=== PATIENT | female | born 1995 | race Caucasian/White ===

== ENCOUNTER 2017-01-10 21:09 | Emergency (ER) | payer MEDICAID, OTHER ==
--- NOTE | 2017-01-10 22:02 | ED Physician Documentation ---
History of Present Illness - Stated complaint Stated Complaint: LIGHTHEADED/NAUSEA - Chief complaint Chief Complaint: General - History obtained from History obtained from: Patient - History of Present Illness Timing: How many days ago (4) Pain level max: 0 Pain level now: 0 Improved by: rest Worsened by: intermittently worsened when sitting or standing from lying down position - Additonal information Additional information: c/o 4 days of lightheadedness, mild nausea without vomiting, and mild dyspnea Review of Systems Constitutional: denies: Fever, Chills, Fatigue, Sweats Cardiac: reports: Palpitations. denies: Chest pain / pressure Respiratory: reports: Dyspnea GI: reports: Nausea. denies: Abdominal Pain, Vomiting : denies: Dysuria, Frequency, Now EGA Neurologic: denies: Generalized weakness, Focal weakness, Numbness, Headache PD PAST MEDICAL HISTORY - Past Medical History Past Medical History: No - Past Surgical History Past Surgical History: No - Present Medications Home Medications: Ambulatory Orders Medication Instructions Recorded Confirmed LORazepam [Ativan] 0.5 mg PO Q6H PRN #14 tablet 01/10/17 - Allergies Allergies/Adverse Reactions: Allergies Allergy/AdvReac Type Severity Reaction Status Date / Time No Known Drug Allergies Allergy Verified 01/10/17 21:20 - Living Situation Living Arrangement: reports: At home - Social History Does the pt smoke?: No PD ED PE NORMAL - Vitals Vital signs reviewed: Yes - General General: Alert and oriented X 3, Well developed/nourished, Other (appears to be mildly anxious) - HEENT HEENT: PERRL, EOMI, Moist mucous membranes - Neck Neck: Supple, no meningeal sign - Cardiac Cardiac: No murmur - Respiratory Respiratory: No respiratory distress, Clear bilaterally - Abdomen Abdomen: Soft, Non tender - Neuro Neuro: Alert and oriented X 3, 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, No motor deficit, No sensory deficit PD ED PE EXPANDED - Cardiac Cardiac: Tachy, Regular Rhythm Results - Vitals Vitals: Vital Signs - 24 hr 01/10/17 01/10/17 21:17 23:00 Temperature 36.7 C 36.6 C Heart Rate 120 H 91 Respiratory 16 16 Rate Blood Pressure 141/92 H 136/99 H O2 Saturation 100 100 Oxygen O2 Source Room air - Labs Labs: Laboratory Tests 01/10/17 01/10/17 22:30 22:30 WBC 13.2 H RBC 6.35 H Hgb 12.5 Hct 40.4 MCV 63.6 L MCH 19.6 L MCHC 30.9 L RDW 16.0 H Plt Count 254 MPV 8.8 Neut # 9.3 H Lymph # 3.0 [place] # 0.8 Eos # 0.1 Baso # 0.1 Absolute Nucleated RBC 0.01 Nucleated RBCs 0.1 Manual Slide Review Indicated Platelet Estimate NORMAL (130-450,000) Platelet Morphology NORMAL APPEARANCE RBC Morph Micro Appear 1+ OVALOCYTES Sodium 137 Potassium 3.5 Chloride 101 Carbon Dioxide 25 Anion Gap 11.0 BUN 8 Creatinine 0.6 Estimated GFR (MDRD) 129 Glucose 106 H Calcium 9.7 PD MEDICAL DECISION MAKING - ED course Complexity details: reviewed results (Patient reported significant improvement on reevaluation prior to d/c), re-evaluated patient, considered differential, d/ w patient Departure - Departure Disposition: 01 Home, Self Care Clinical Impression: Lightheaded Condition: Good Instructions: ED Dizziness UKO, ED Hypertension Poss, ED Near Syncope Unkn Follow-Up: [facility] [Provider Group] [facility] [Provider Group] Prescriptions: LORazepam [Ativan] 0.5 mg PO Q6H PRN #14 tablet PRN Reason: Anxiety Discharge Date/Time: 01/10/17 23:57
[2017-01-10] MEDS ORDERED: LORazepam 0.5 MG TABLET PO STA (22:30)
[2017-01-10] MEDS ORDERED: LORazepam 0.5 MG TABLET ONE (22:36)
[2017-01-10 22:41] LABS: BASOPHILS # (AUTO) 0.1 10^3/uL (0.0-0.1); BASOPHILS % (AUTO) 0.4 %; EOSINOPHILS # (AUTO) 0.1 10^3/uL (0.0-0.7); EOSINOPHILS % (AUTO) 0.6 %; HCT - HEMATOCRIT 40.4 % (37.0-47.0); HGB - HEMOGLOBIN 12.5 g/dL (12.0-16.0); LYMPHOCYTES % (AUTO) 22.7 %; MEAN CORPUSCULAR HEMOGLOBIN 19.6 pg (27.0-31.0); MEAN CORPUSCULAR HGB CONC 30.9 g/dL (32.0-36.0); MEAN CORPUSCULAR VOLUME 63.6 fL (81.0-99.0); MEAN PLATELET VOLUME 8.8 fL (7.9-10.8); MONOCYTES # (AUTO) 0.8 10^3/uL (0.0-1.0); MONOCYTES % (AUTO) 5.9 %; NEUTROPHILS # (AUTO) 9.3 10^3/uL (1.5-6.6); NEUTROPHILS % (AUTO) 70.4 %; NUCLEATED RED BLOOD CELLS AUTO 0.1 /100WBC; RED BLOOD COUNT 6.35 10^6/uL (4.20-5.40); UNCORRECTED WHITE BLOOD COUNT 13.2 x10^3/uL; WHITE BLOOD COUNT 13.2 x10^3/uL (4.8-10.8)
[2017-01-10 22:46] LABS: CALCIUM 9.7 mg/dL (8.5-10.3); CREATININE 0.6 mg/dL (0.4-1.0); POTASSIUM 3.5 mmol/L (3.5-5.0)
[2017-01-10 23:01] VITALS: BP 136/99
[2017-01-10 23:18] LABS: PLATELET ESTIMATE, MANUAL NORMAL (130-450,000) (NORMAL); PLATELET MORPHOLOGY NORMAL APPEARANCE (NORMAL)
== END 2017-01-10 23:57 | disposition home or self-care (01) ==
LOC: ED 21:09
DX: R42 Dizziness and giddiness (principal); F41.9 Anxiety disorder, unspecified
CPT/HCPCS: 36415; 80048; 85025; 99283; A9270

== ENCOUNTER 2017-02-15 01:10 | Emergency (ER) | payer OTHER ==
--- NOTE | 2017-02-15 02:16 | ED Physician Documentation ---
History of Present Illness - Stated complaint Stated Complaint: BODY ACHES - Chief complaint Chief Complaint: General - History obtained from History obtained from: Patient - History of Present Illness Timing: How many days ago (2) Pain level now: 3 Radiates to: right shoulder and right upper back Improved by: rest Worsened by: movement, palpation - Additonal information Additional information: c/o atraumatic right-sided neck pain x 2 days. She had a massage yesterday, but the pain subsequently worsened and now radiates to right shoulder and right upper back. 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 PD PAST MEDICAL HISTORY - Past Medical History Past Medical History: No - Past Surgical History Past Surgical History: No - Present Medications Home Medications: Ambulatory Orders Medication Instructions Recorded Confirmed traMADol [Ultram] 50 - 100 mg PO Q6H PRN #20 tablet 02/15/17 - Allergies Allergies/Adverse Reactions: Allergies Allergy/AdvReac Type Severity Reaction Status Date / Time No Known Drug Allergies Allergy Verified 02/15/17 01:18 - Social History Does the pt smoke?: No Smoking Status: Never smoker Does the pt drink ETOH?: No Does the pt have substance abuse?: No - Immunizations Immunizations are current?: Yes - POLST Patient has POLST: No PD ED PE NORMAL - Vitals Vital signs reviewed: Yes - General General: Alert and oriented X 3, No acute distress, Well developed/nourished - HEENT HEENT: Moist mucous membranes, Pharynx benign - Neck Neck: Supple, no meningeal sign, No bony TTP - Respiratory Respiratory: No respiratory distress, Clear bilaterally - Back Back: No spinal TTP - Derm Derm: No rash - Free text exam Free text exam: mild tenderness to palpation along right trapezial ridge Results - Vitals Vitals: Vital Signs - 24 hr 02/15/17 02/15/17 01:15 02:35 Temperature 36.7 C 36.8 C Heart Rate 89 86 Respiratory 18 16 Rate Blood Pressure 128/85 H 113/79 O2 Saturation 99 96 Oxygen O2 Source Room air PD MEDICAL DECISION MAKING - ED course Complexity details: considered differential, d/w patient, d/w family ED course: unremarkable exam although tenderness along right trapezius muscle. Emergent testing not indicated at this time. I offered pain medication, discussed options (tylenol, ultram, vicodin. I recommended ultram, as vicodin would probably be unnecessarily strong at this time, and tylenol unlikely to control the pain if ibuprofen was inadequate). She declined pain meds in ED but agreeable to take rx to take if pain worsens. Departure - Departure Disposition: 01 Home, Self Care Clinical Impression: Neck pain Condition: Good Instructions: ED Neck Pain No Trauma Prescriptions: traMADol [Ultram] 50 - 100 mg PO Q6H PRN #20 tablet PRN Reason: Pain Discharge Date/Time: 02/15/17 02:37
[2017-02-15 02:36] VITALS: BP 113/79
== END 2017-02-15 02:37 | disposition home or self-care (01) ==
LOC: ED 01:10
DX: M54.2 Cervicalgia (principal); M54.6 Pain in thoracic spine
CPT/HCPCS: 99283

== ENCOUNTER 2017-08-16 00:16 | Emergency (ER) | payer SELFPAY ==
--- NOTE | 2017-08-16 02:09 | ED Physician Documentation ---
History of Present Illness - Stated complaint Stated Complaint: SHORTNESS OF BREATH - Chief complaint Chief Complaint: General - History obtained from History obtained from: Patient - History of Present Illness Improved by: no ameliorating factors Worsened by: neck pain is worse with palpation - Additonal information Additional information: c/o tenderness midline anterior neck (she points to the thyroid cartilage) x months (I had evaluated patient in this ED previously for similar c/o), presents tonight due to dyspnea without apparent inciting factor(s) and which spontaneously resolved BUSINESS ASSISTANT. Review of Systems Constitutional: denies: Fever, Chills, Sweats Throat: denies: Sore throat Cardiac: reports: Reviewed and negative Respiratory: reports: Dyspnea (resolved). denies: Cough, Wheezing GI: reports: Reviewed and negative Musculoskeletal: reports: Neck pain (anterior midline) PD PAST MEDICAL HISTORY - Past Medical History Past Medical History: No - Past Surgical History Past Surgical History: No - Present Medications Home Medications: Ambulatory Orders Medication Instructions Recorded Confirmed LORazepam [Ativan] 0.5 mg PO Q6H PRN #14 tablet 08/16/17 - Allergies Allergies/Adverse Reactions: Allergies Allergy/AdvReac Type Severity Reaction Status Date / Time No Known Drug Allergies Allergy Verified 08/16/17 00:22 - Social History Does the pt smoke?: No Smoking Status: Never smoker Does the pt drink ETOH?: No Does the pt have substance abuse?: No - Immunizations Immunizations are current?: Yes - POLST Patient has POLST: No PD ED PE NORMAL - Vitals Vital signs reviewed: Yes - General General: Alert and oriented X 3, No acute distress, Well developed/nourished - HEENT HEENT: Moist mucous membranes, Pharynx benign - Cardiac Cardiac: RRR, No murmur - Respiratory Respiratory: No respiratory distress, Clear bilaterally - Derm Derm: Normal color, Warm and dry, No rash PD ED PE EXPANDED - Neck Neck: Supple w/out meningeal sx. No: Thyroid enlarged / mass, No tenderness, Soft tissue TTP, Bony TTP, Limited ROM Results - Vitals Vitals: Vital Signs - 24 hr 08/16/17 08/16/17 00:18 02:27 Temperature 36.7 C 36.4 C L Heart Rate 86 75 Respiratory 18 18 Rate Blood Pressure 136/92 H 120/77 O2 Saturation 100 97 Oxygen O2 Source Room air PD MEDICAL DECISION MAKING - ED course Complexity details: considered differential, d/w patient ED course: NAD, lungs CTA bilaterally, VSS, and unremarkable exam of neck. Emergent testing not indicated at this time; encouraged to seek follow-up in outpatient setting. She requests rx for the anxiety medication that was given to her on a previous visit (lorazepam, was given dose in ED on previous visit and she says this had helped her symptoms at that time. She is driving tonight and thus will be given rx but none in ED. She says she never filled the rx last time). Departure - Departure Disposition: 01 Home, Self Care Clinical Impression: Neck pain Dyspnea Qualifiers: Dyspnea type: shortness of breath Qualified Code(s): R06.02 - Shortness of breath Condition: Good Instructions: ED Dyspnea Shortness of Breath Follow-Up: [facility] [Provider Group] [facility] [Provider Group] Prescriptions: LORazepam [Ativan] 0.5 mg PO Q6H PRN #14 tablet PRN Reason: Anxiety Discharge Date/Time: 08/16/17 02:28
[2017-08-16 02:28] VITALS: BP 120/77
== END 2017-08-16 02:28 | disposition home or self-care (01) ==
LOC: ED 00:16
DX: R06.02 Shortness of breath (principal); M54.2 Cervicalgia
CPT/HCPCS: 99283

== ENCOUNTER 2017-10-15 11:48 | Emergency (ER) | payer SELFPAY ==
[2017-10-15 11:55] VITALS: BP 118/73
--- NOTE | 2017-10-15 12:34 | ED Physician Documentation ---
PD HPI BACK INJURY - Stated complaint Stated Complaint: LOWER BACK/HIP PX - History obtained from History obtained from: Patient - History of Present Illness Location: Right, Lower Type of injury: Other (She felt a pull in her back yesterday, she works at a [employer] and she was lifting a patient at the time. Did not hurt that much until she got up this morning and has focal burning right lower back pain that does not radiate into the leg or groin. It is not associated with weakness, numbness, or tingling of the legs or saddle area and there is no incontinence. No urinary complaints. No fever.) Review of Systems Constitutional: reports: Reviewed and negative Throat: reports: Reviewed and negative Cardiac: reports: Reviewed and negative Respiratory: reports: Dyspnea PD PAST MEDICAL HISTORY - Past Medical History Past Medical History: No - Past Surgical History Past Surgical History: No - Present Medications Home Medications: Ambulatory Orders Medication Instructions Recorded Confirmed Cyclobenzaprine [Flexeril] 10 mg PO TID PRN #20 tablet 10/15/17 Ibuprofen [Motrin] 800 mg PO Q8H PRN #30 tablet 10/15/17 - Allergies Allergies/Adverse Reactions: Allergies Allergy/AdvReac Type Severity Reaction Status Date / Time No Known Drug Allergies Allergy Verified 10/15/17 12:21 - Social History Does the pt smoke?: No Smoking Status: Never smoker Does the pt drink ETOH?: No Does the pt have substance abuse?: No - Immunizations Immunizations are current?: Yes - POLST Patient has POLST: No PD ED PE NORMAL - Vitals Vital signs reviewed: Yes - General General: Alert and oriented X 3, No acute distress - Back Back: Other (Muscular tenderness of the right lower lumbar area) - Extremities Extremities: Other (The patient has equal and normal Achilles and patellar reflexes bilaterally. Normal sensation in all areas of the legs. Patient denies saddle anesthesia. Normal strength in flexion-extension at the ankles, knees, and flexion of the hips.) - Neuro Neuro: Alert and oriented X 3, Normal speech Results - Vitals Vitals: Vital Signs - 24 hr 10/15/17 11:51 Temperature 36.4 C L Heart Rate 82 Respiratory 18 Rate Blood Pressure 118/73 O2 Saturation 97 Oxygen O2 Source Room air PD MEDICAL DECISION MAKING - Sepsis Event Vital Signs: Vital Signs - 24 hr 10/15/17 11:51 Temperature 36.4 C L Heart Rate 82 Respiratory 18 Rate Blood Pressure 118/73 O2 Saturation 97 Oxygen O2 Source Room air Departure - Departure Disposition: 01 Home, Self Care Clinical Impression: Back pain Qualifiers: Back pain location: low back pain Chronicity: acute Back pain laterality: right Sciatica presence: without sciatica Qualified Code(s): M54.5 - Low back pain Condition: Good Record reviewed to determine appropriate education?: Yes Instructions: ED Low Back Pain Injury Prescriptions: Cyclobenzaprine [Flexeril] 10 mg PO TID PRN #20 tablet PRN Reason: Pain Ibuprofen [Motrin] 800 mg PO Q8H PRN #30 tablet PRN Reason: PAIN &/OR FEVER Comments: Call your doctor to arrange a follow-up appointment, make the next available appointment. In the interim, return anytime if worse or if new symptoms develop. Forms: Activity restrictions
== END 2017-10-15 12:41 | disposition home or self-care (01) ==
LOC: ED 11:48
DX: M54.5 Low back pain (principal); X50.9XXA Other and unspecified overexertion or strenuous movements or postures, initial encounter; Y93.F2 Activity, caregiving, lifting; Y92.129 Unspecified place in nursing home as the place of occurrence of the external cause; Y99.0 Civilian activity done for income or pay
CPT/HCPCS: 99283

== ENCOUNTER 2017-12-19 09:52 | Emergency (ER) | payer MEDICAID ==
[2017-12-19] MEDS ORDERED: ONDANSETRON ODT 4 MG TABLET TL STA (12:12)
--- NOTE | 2017-12-19 12:13 | ED Physician Documentation ---
PD HPI PED ILLNESS - Stated complaint Stated Complaint: NAUSEA,DIARRHEA,CHILLS,HEADACHE - Chief complaint Chief Complaint: General - History obtained from History obtained from: Patient - History of Present Illness Timing - onset: Other (She is been ill for a little under a week with nausea but no vomiting and diarrhea about twice a day, not mucousy or bloody junk, just watery. She also has stomach cramps and decreased appetite but is eating and drinking. She has had chills but no measured fevers. Her sister and her niece have had similar issues. No recent camping or antibiotic use.) Review of Systems Constitutional: reports: Chills, Fatigue. denies: Fever Cardiac: denies: Chest pain / pressure, Palpitations Respiratory: denies: Dyspnea, Cough GI: reports: Abdominal Pain, Nausea, Diarrhea. denies: Vomiting, Bloody / black stool PD PAST MEDICAL HISTORY - Past Medical History Past Medical History: No - Past Surgical History Past Surgical History: No - Present Medications Home Medications: Ambulatory Orders Medication Instructions Recorded Confirmed Loperamide [Imodium] 2 mg PO QID PRN #10 capsule 12/19/17 Ondansetron Odt [Zofran] 4 mg TL Q6H PRN #10 tablet 12/19/17 Stool 1 unit TD ONCE #1 12/19/17 - Allergies Allergies/Adverse Reactions: Allergies Allergy/AdvReac Type Severity Reaction Status Date / Time No Known Drug Allergies Allergy Verified 12/19/17 10:07 - Social History Does the pt smoke?: No Smoking Status: Never smoker Does the pt drink ETOH?: No Does the pt have substance abuse?: No - Immunizations Immunizations are current?: Yes - POLST Patient has POLST: No PD ED PE NORMAL - Vitals Vital signs reviewed: Yes - General General: Alert and oriented X 3, No acute distress - HEENT HEENT: Moist mucous membranes, Pharynx benign - Cardiac Cardiac: RRR, No murmur - Respiratory Respiratory: No respiratory distress, Clear bilaterally - Abdomen Abdomen: Normal bowel sounds, Soft, Non tender - Derm Derm: No rash - Neuro Neuro: Alert and oriented X 3, Normal speech Results - Vitals Vitals: Vital Signs - 24 hr 12/19/17 10:03 Temperature 36.4 C L Heart Rate 75 Respiratory 16 Rate Blood Pressure 126/108 H O2 Saturation 98 Oxygen O2 Source Room air - Labs Labs: Laboratory Tests 12/19/17 12/19/17 12/19/17 12:12 12:35 12:35 WBC 9.8 RBC 6.11 H Hgb 12.7 Hct 39.4 MCV 64.4 L MCH 20.8 L MCHC 32.2 RDW 15.6 H Plt Count 207 MPV 8.4 Neut # (Auto) 5.7 Lymph # (Auto) 3.1 [place] # (Auto) 0.7 Eos # (Auto) 0.2 Baso # (Auto) 0.1 Absolute Nucleated RBC 0.01 Nucleated RBC % 0.1 Sodium 136 Potassium 3.8 Chloride 103 Carbon Dioxide 27 Anion Gap 6.0 BUN 15 Creatinine 0.6 Estimated GFR (MDRD) 127 Glucose 98 Calcium 9.2 Total Bilirubin 0.9 AST 15 ALT 17 Alkaline Phosphatase 75 Total Protein 7.7 Albumin 4.4 Globulin 3.3 Albumin/Globulin Ratio 1.3 Lipase 37 Urine Color YELLOW Urine Clarity HAZY Urine pH 6.0 Ur Specific [place] >=1.030 H Urine Protein NEGATIVE Urine Glucose (UA) NEGATIVE Urine Ketones NEGATIVE Urine Occult Blood NEGATIVE Urine Nitrite NEGATIVE Urine Bilirubin NEGATIVE Urine Urobilinogen 0.2 (NORMAL) Ur Leukocyte Esterase NEGATIVE Urine RBC None Seen Urine WBC 0-3 Ur Squamous Epith Cells RARE Squamous Urine Bacteria Rare Urine Mucus Marked Strands Ur Microscopic Review INDICATED Urine Culture Comments NOT INDICATED Urine HCG, Qual NEGATIVE PD MEDICAL DECISION MAKING - ED course ED course: 22-year-old presents with almost week's worth of diarrhea, nausea and cramping. Chills but no fevers. Examination is benign as is her blood work. She was unable to produce a stool sample here and given outpatient lab requisition. - Sepsis Event Vital Signs: Vital Signs - 24 hr 12/19/17 10:03 Temperature 36.4 C L Heart Rate 75 Respiratory 16 Rate Blood Pressure 126/108 H O2 Saturation 98 Oxygen O2 Source Room air Departure - Departure Disposition: 01 Home, Self Care Clinical Impression: Diarrhea Qualifiers: Diarrhea type: presumed infectious Qualified Code(s): R19.7 - Diarrhea, unspecified Condition: Good Record reviewed to determine appropriate education?: Yes Instructions: ED Gastroenteritis Report Pend Prescriptions: Loperamide [Imodium] 2 mg PO QID PRN #10 capsule PRN Reason: Diarrhea Ondansetron Odt [Zofran] 4 mg TL Q6H PRN #10 tablet PRN Reason: Nausea / Vomiting Stool 1 unit TD ONCE #1 Comments: Return a stool sample to lab when you are able. Return if worsening. Follow- up with your doctor in 2-3 days if not better. Your blood pressure was elevated today on check into the emergency department. This does not mean that you have hypertension, it is a common phenomenon to come to the emergency department and have elevated blood pressure. I recommend that you see your primary care physician within the week to have it rechecked when you are feeling better.
[2017-12-19 12:46] LABS: BILIRUBIN,URINE NEGATIVE (NEGATIVE); GLUCOSE, URINE (UA) NEGATIVE (NEGATIVE); KETONES,URINE (UA) NEGATIVE (NEGATIVE); LEUKOCYTE ESTERASE, URINE NEGATIVE (NEGATIVE); NITRITE,URINE NEGATIVE (NEGATIVE); OCCULT BLOOD,URINE NEGATIVE (NEGATIVE); PROTEIN,URINE NEGATIVE (NEGATIVE); UROBILINOGEN,URINE 0.2 (NORMAL) E.U./dL (NORMAL)
[2017-12-19 12:51] LABS: CLARITY,URINE HAZY (CLEAR); HCG UR QUAL NEGATIVE
[2017-12-19 12:52] LABS: BACTERIA,URINE Rare /HPF (None Seen); MUCUS,URINE Marked Strands; RBC,URINE None Seen /HPF (0-5); SQUAMOUS EPITHELIAL CELL,UR RARE Squamous (<= Few)
[2017-12-19 12:57] LABS: BASOPHILS # (AUTO) 0.1 10^3/uL (0.0-0.1); BASOPHILS % (AUTO) 0.6 %; EOSINOPHILS # (AUTO) 0.2 10^3/uL (0.0-0.7); EOSINOPHILS % (AUTO) 2.2 %; HGB - HEMOGLOBIN 12.7 g/dL (12.0-16.0); LYMPHOCYTES # (AUTO) 3.1 10^3/uL (1.5-3.5); LYMPHOCYTES % (AUTO) 32.1 %; MEAN CORPUSCULAR HEMOGLOBIN 20.8 pg (27.0-31.0); MEAN CORPUSCULAR HGB CONC 32.2 g/dL (32.0-36.0); MEAN CORPUSCULAR VOLUME 64.4 fL (81.0-99.0); MEAN PLATELET VOLUME 8.4 fL (7.9-10.8); MONOCYTES # (AUTO) 0.7 10^3/uL (0.0-1.0); MONOCYTES % (AUTO) 6.7 %; NEUTROPHILS # (AUTO) 5.7 10^3/uL (1.5-6.6); NEUTROPHILS % (AUTO) 58.4 %; PLT - PLATELET COUNT 207 10^3/uL (130-450); RED BLOOD COUNT 6.11 10^6/uL (4.20-5.40); RED CELL DISTRIBUTION WIDTH 15.6 % (12.0-15.0); WHITE BLOOD COUNT 9.8 x10^3/uL (4.8-10.8)
[2017-12-19 13:01] LABS: ALBUMIN 4.4 g/dL (3.2-5.5); ALBUMIN/GLOBULIN RATIO 1.3 (1.0-2.2); BILIRUBIN,TOTAL 0.9 mg/dL (0.2-1.0); CALCIUM 9.2 mg/dL (8.5-10.3); CREATININE 0.6 mg/dL (0.4-1.0); TOTAL PROTEIN 7.7 g/dL (6.7-8.2)
[2017-12-19 13:44] VITALS: BP 124/85
== END 2017-12-19 13:36 | disposition home or self-care (01) ==
LOC: ED 09:52
DX: R19.7 Diarrhea, unspecified (principal); R03.0 Elevated blood-pressure reading, without diagnosis of hypertension
CPT/HCPCS: 36415; 80053; 81001; 81025; 83690; 85025; 99283; Q0162; 81003; 87086

== ENCOUNTER 2018-06-28 23:04 | Emergency (ER) | payer MEDICAID ==
[2018-06-28 23:43] LABS: BILIRUBIN,URINE NEGATIVE (NEGATIVE); GLUCOSE, URINE (UA) NEGATIVE (NEGATIVE); KETONES,URINE (UA) NEGATIVE (NEGATIVE); LEUKOCYTE ESTERASE, URINE TRACE (NEGATIVE); NITRITE,URINE NEGATIVE (NEGATIVE); OCCULT BLOOD,URINE NEGATIVE (NEGATIVE); PH,URINE 6.5 PH (5.0-7.5); PROTEIN,URINE NEGATIVE (NEGATIVE); UROBILINOGEN,URINE 1 (NORMAL) E.U./dL (NORMAL)
[2018-06-28 23:46] LABS: CLARITY,URINE CLEAR (CLEAR); HCG UR QUAL NEGATIVE
[2018-06-28 23:51] LABS: BACTERIA,URINE Rare /HPF (None Seen); MUCUS,URINE Few Strands; RBC,URINE 0-5 /HPF (0-5); SQUAMOUS EPITHELIAL CELL,UR MOD Squamous (<= Few)
[2018-06-29 00:57] VITALS: BP 134/93
--- NOTE | 2018-06-29 06:07 | ED Physician Documentation ---
PD HPI BACK PAIN - Stated complaint Stated Complaint: LWR L BACK PAIN - Chief complaint Chief Complaint: Back Pain - History obtained from History obtained from: Patient - History of Present Illness Timing - onset: How many days ago (2) Timing - details: Abrupt onset, Now resolved, Intermittant Pain level max: 5 Pain level now: 0 Location: Lower, Left Quality: Pain Improves with: Rest Worsened by: Movement Similar symptoms before: Has not had sx before Recently seen: Not recently seen - Additional information Additional information: c/o episodic left low back pain x 2 days. denies injury, denies h/o similar symptoms. When the pain is present, it is exacerbated with movement. However, she has no pain between episodes, and movement has no inciting quality to the episodes. She also says she is "five days late" with her menses Review of Systems Constitutional: denies: Fever, Chills, Sweats GI: denies: Abdominal Pain, Nausea, Vomiting : reports: Missed period ("five days late", per patient). denies: Dysuria, Frequency, Hematuria Musculoskeletal: reports: Back pain Neurologic: denies: Focal weakness, Numbness PD PAST MEDICAL HISTORY - Past Medical History Past Medical History: No - Past Surgical History Past Surgical History: No - Present Medications Home Medications: Ambulatory Orders Medication Instructions Recorded Confirmed Loperamide [Imodium] 2 mg PO QID PRN #10 capsule 12/19/17 Ondansetron Odt [Zofran] 4 mg TL Q6H PRN #10 tablet 12/19/17 Stool 1 unit TD ONCE #1 12/19/17 - Allergies Allergies/Adverse Reactions: Allergies Allergy/AdvReac Type Severity Reaction Status Date / Time No Known Drug Allergies Allergy Verified 06/28/18 23:09 - Social History Does the pt smoke?: No Smoking Status: Never smoker Does the pt drink ETOH?: No Does the pt have substance abuse?: No - Immunizations Immunizations are current?: Yes - POLST Patient has POLST: No PD ED PE NORMAL - Vitals Vital signs reviewed: Yes - General General: Alert and oriented X 3, No acute distress, Well developed/nourished - Abdomen Abdomen: Soft, Non tender - Back Back: No CVA TTP, No spinal TTP Results - Vitals Vitals: Vital Signs - 24 hr 06/28/18 06/29/18 06/29/18 23:07 00:54 00:57 Temperature 36.7 C 36.7 C Heart Rate 124 H 119 H Respiratory 18 20 Rate Blood Pressure 106/87 H 162/115 H 134/93 H O2 Saturation 100 98 Oxygen O2 Source Room air - Labs Labs: Laboratory Tests 06/28/18 23:15 Urine Color YELLOW Urine Clarity CLEAR Urine pH 6.5 Ur Specific [place] 1.020 Urine Protein NEGATIVE Urine Glucose (UA) NEGATIVE Urine Ketones NEGATIVE Urine Occult Blood NEGATIVE Urine Nitrite NEGATIVE Urine Bilirubin NEGATIVE Urine Urobilinogen 1 (NORMAL) Ur Leukocyte Esterase TRACE H Urine RBC 0-5 Urine WBC 4-5 Ur Squamous Epith Cells MOD Squamous H Urine Bacteria Rare Urine Mucus Few Strands Ur Microscopic Review INDICATED Urine Culture Comments NOT INDICATED Urine HCG, Qual NEGATIVE PD MEDICAL DECISION MAKING - ED course Complexity details: reviewed results, re-evaluated patient, considered differential, d/w patient ED course: asymptomatic during ED stay. Departure - Departure Disposition: 01 Home, Self Care Clinical Impression: Back pain Qualifiers: Back pain location: low back pain Chronicity: acute Back pain laterality: left Sciatica presence: without sciatica Qualified Code(s): M54.5 - Low back pain Condition: Good Instructions: ED Neck Back Pain General, ED Acute Pain UKO Discharge Date/Time: 06/29/18 01:33
== END 2018-06-29 01:33 | disposition home or self-care (01) ==
LOC: ED 23:04
DX: M54.5 Low back pain (principal)
CPT/HCPCS: 81001; 81003; 81025; 87086; 99283

== ENCOUNTER 2019-01-02 14:25 | Emergency (ER) | payer SELFPAY ==
[2019-01-02 14:40] VITALS: BP 146/88
--- NOTE | 2019-01-02 15:42 | ED Physician Documentation ---
PD HPI SKIN - Stated complaint Stated Complaint: HAND/ANKLE RASH - Chief complaint Chief Complaint: Wound - History obtained from History obtained from: Patient - History of Present Illness Timing - onset: Other (For the last week she has a very itchy rash on the anterior wrists and a little bit on the ankles. No pets at home, no known bites. No sick contacts.) Review of Systems Constitutional: denies: Fever, Chills Respiratory: denies: Dyspnea, Cough GI: denies: Abdominal Pain, Nausea, Vomiting PD PAST MEDICAL HISTORY - Past Medical History Past Medical History: No - Past Surgical History Past Surgical History: No - Present Medications Home Medications: Ambulatory Orders Medication Instructions Recorded Confirmed Loperamide [Imodium] 2 mg PO QID PRN #10 capsule 12/19/17 Ondansetron Odt [Zofran] 4 mg TL Q6H PRN #10 tablet 12/19/17 Stool 1 unit TD ONCE #1 12/19/17 Doxepin [SINEquan] 10 mg PO TID PRN #30 capsule 01/02/19 Permethrin 5% Cream 1 applic TOP ONCE #2 tube 01/02/19 - Allergies Allergies/Adverse Reactions: Allergies Allergy/AdvReac Type Severity Reaction Status Date / Time No Known Drug Allergies Allergy Verified 01/02/19 14:35 - Social History Does the pt smoke?: No Smoking Status: Never smoker Does the pt drink ETOH?: No Does the pt have substance abuse?: No - Immunizations Immunizations are current?: Yes - POLST Patient has POLST: No PD ED PE NORMAL - Vitals Vital signs reviewed: Yes - General General: Alert and oriented X 3, No acute distress - Derm Derm: Other (Focal red rash that look like burrows most impressive in the anterior wrist flexor creases bilaterally. Less so in the ankles.) - Neuro Neuro: Alert and oriented X 3, Normal speech Results - Vitals Vitals: Vital Signs - 24 hr 01/02/19 14:35 Temperature 36.5 C Heart Rate 89 Respiratory 16 Rate Blood Pressure 146/88 H O2 Saturation 99 Oxygen O2 Source Room air Departure - Departure Disposition: 01 Home, Self Care Clinical Impression: Scabies Condition: Good Record reviewed to determine appropriate education?: Yes Instructions: ED Scabies Follow-Up: [facility] [Provider Group] Prescriptions: Doxepin [SINEquan] 10 mg PO TID PRN #30 capsule PRN Reason: Itching Permethrin 5% Cream 1 applic TOP ONCE #2 tube Comments: As discussed, this rash looks most like scabies. Return if worse. If the treatment is ineffective follow-up with the former hand for further evaluation and treatment. Do not drink or drive while taking the anti-itch medication.
== END 2019-01-02 15:46 | disposition home or self-care (01) ==
LOC: ED 14:25
DX: B86 Scabies (principal)
CPT/HCPCS: 99282; 99283

== ENCOUNTER 2020-01-05 00:24 | Emergency (ER) | payer SELFPAY ==
--- NOTE | 2020-01-05 01:05 | ED Physician Documentation ---
PD HPI DYSPNEA - Stated complaint Stated Complaint: SOA - Chief complaint Chief Complaint: Resp - History obtained from History obtained from: Patient - History of Present Illness Timing - onset: How many days ago (3-4) Timing - details: Gradual onset, Waxing and waning Pain level max: 0 Pain level now: 0 Associated symptoms: Cough (mild nonproductive cough). No: Fever, Hemoptysis, Wheezing, Chest pain / discomfort, Palpitations, Diaphoresis, Bilateral edema, Unilateral edema Recently seen: Clinic - Additional information Additional information: c/o 3-4 days of dyspnea and loss of taste and smell. Also mild, nonproductive cough. Denies fever, chills, sweats. She says she had COVID and PPD tests 2 weeks ago and that the PPD was interpreted as positive but she does not know the COVID results. She says she was to have blood tests , possibly cxr to follow up the PPD result but that the clinic told her they were too busy to schedule further testing. Review of Systems Constitutional: denies: Fever, Chills, Fatigue, Sweats Cardiac: reports: Reviewed and negative Respiratory: reports: Dyspnea, Cough. denies: Hemoptysis, Wheezing GI: reports: Reviewed and negative Musculoskeletal: denies: Extremity swelling PD PAST MEDICAL HISTORY - Past Medical History Past Medical History: Yes Cardiovascular: None Respiratory: None Neuro: None Endocrine/Autoimmune: None GI: None [employer]: None : None HEENT: None Psych: None Musculoskeletal: None Derm: None - Past Surgical History Past Surgical History: No - Present Medications Home Medications: Ambulatory Orders Medication Instructions Recorded Confirmed guaiFENesin/CODEINE [Robitussin AC] 5 - 10 ml PO Q6H PRN #100 [facility] [place] - Allergies Allergies/Adverse Reactions: Allergies Allergy/AdvReac Type Severity Reaction Status Date / Time No Known Drug Allergies Allergy Verified 01/05/20 00:34 - Social History Does the pt smoke?: No Smoking Status: Never smoker Does the pt drink ETOH?: No Does the pt have substance abuse?: No - Immunizations Immunizations are current?: Yes - POLST Patient has POLST: No PD ED PE NORMAL - Vitals Vital signs reviewed: Yes - General General: Alert and oriented X 3, No acute distress, Well developed/nourished - Cardiac Cardiac: RRR, No murmur, No gallop, No rub - Respiratory Respiratory: No respiratory distress, Clear bilaterally - Abdomen Abdomen: Soft, Non tender Results - Vitals Vitals: Vital Signs - 24 hr 01/05/20 01/05/20 01/05/20 00:31 01:33 01:41 Temperature 36.8 C Heart Rate 99 80 Respiratory 16 16 16 Rate Blood Pressure 150/105 H 127/90 H O2 Saturation 98 98 01/05/20 02:50 Temperature Heart Rate 71 Respiratory 16 Rate Blood Pressure 109/81 H O2 Saturation 98 Oxygen O2 Source Room air - Rads (name of study) chest xray Radiology: Prelim report reviewed, See rad report PD MEDICAL DECISION MAKING - ED course Complexity details: reviewed results, re-evaluated patient, considered differential, d/w patient Departure - Departure Disposition: 01 Home, Self Care Clinical Impression: Dyspnea Condition: Good Instructions: ED Dyspnea Shortness of Breath Prescriptions: guaiFENesin/CODEINE [Robitussin AC] 5 - 10 ml PO Q6H PRN #100 [facility] PRN Reason: Cough Discharge Date/Time: 01/05/20 02:52
[2020-01-05] MEDS ORDERED: guaiFENesin/DEXTROMETHORPHAN 10 ML UDC PO STA (02:29)
[2020-01-05 02:52] VITALS: BP 109/81
--- NOTE | 2020-01-05 07:24 | XRAY Report ---
PROCEDURE: Chest 2 View X-Ray INDICATIONS: Dyspnea TECHNIQUE: 2 view(s) of the chest. COMPARISON: None. FINDINGS: Surgical changes and devices: None. Lungs and pleura: No pleural effusions or pneumothorax. Lungs are clear. Mediastinum: Mediastinal contours are normal. Heart size is normal. Bones and chest wall: No suspicious bony abnormalities. Soft tissues appear unremarkable. IMPRESSION: No acute cardiopulmonary process demonstrated radiographically. Reviewed by: Mamadou Jimenez MD on 01/05/2020 7:23 AM PDT Approved by: Mamadou Jimenez MD on 01/05/2020 7:23 AM PDT Station ID: [id number]
== END 2020-01-05 02:52 | disposition home or self-care (01) ==
LOC: ED 00:24
DX: U07.1 COVID-19 (principal)
CPT/HCPCS: 71046; 87635; 99283; 99284; A9270; 81599

== ENCOUNTER 2023-03-19 19:15 | Emergency (ER) | payer SELFPAY ==
[2023-03-19 19:25] VITALS: BP 140/97; O2SAT 98
[2023-03-19] MEDS ORDERED: ONDANSETRON ODT 4 MG TABLET TL STA (20:12)
[2023-03-19] MEDS ORDERED: ACETAMINOPHEN 500 MG TABLET PO STA (20:12)
[2023-03-19] MEDS ORDERED: CYCLOBENZAPRINE 10 MG Prepack 2 PO PRN (20:12)
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
== END 2023-03-19 20:25 | disposition home or self-care (01) ==
LOC: ED 19:15
DX: S39.012A Strain of muscle, fascia and tendon of lower back, initial encounter (principal); V49.9XXA Car occupant (driver) (passenger) injured in unspecified traffic accident, initial encounter
CPT/HCPCS: 99282; 99283; A9270; Q0162